=== PATIENT | female | born 1945 | race Caucasian/White ===

== ENCOUNTER 2017-08-31 18:38 | Emergency (ER) | payer MEDICARE, MEDICAID ==
[~2017-08-31] VITALS: Ht 162.6 cm; Wt 70.8 kg
[2017-08-31 18:54] VITALS: BP 134/87
[2017-08-31] MEDS ORDERED: LIDOCAINE 1% INJ 50 ML MDV IJ ONE (19:11)
[2017-08-31] MEDS ORDERED: TDAP [DIPH/PERTUSSIS/TET] 0.5 ML VIAL IM ONE ×3 (19:30→20:30)
--- NOTE | 2017-08-31 19:30 | NUR ---
PT REFUSED BOOSTRIX "I ALREADYHAD THE SHOT"
== END 2017-08-31 20:38 | disposition home or self-care (01) ==
LOC: ER 18:43
DX: S61.216A Laceration without foreign body of right little finger without damage to nail, initial encounter (principal); I10 Essential (primary) hypertension; E11.9 Type 2 diabetes mellitus without complications; E03.9 Hypothyroidism, unspecified; W45.8XXA Other foreign body or object entering through skin, initial encounter; Y93.89 Activity, other specified; Y92.89 Other specified places as the place of occurrence of the external cause; Y99.8 Other external cause status
CPT/HCPCS: 90715; A4606; A6402; J3490; Z7610

== ENCOUNTER 2017-09-02 19:24 | Emergency (ER) | payer MEDICARE, MEDICAID ==
[~2017-09-02] VITALS: Ht 157.5 cm; Wt 77.1 kg
[2017-09-02 19:30] VITALS: BP 124/73
== END 2017-09-02 19:55 | disposition home or self-care (01) ==
LOC: ER 19:25
DX: S61.216D Laceration without foreign body of right little finger without damage to nail, subsequent encounter (principal); X58.XXXD Exposure to other specified factors, subsequent encounter; I10 Essential (primary) hypertension; E11.9 Type 2 diabetes mellitus without complications
CPT/HCPCS: A4606; Z7610

== ENCOUNTER 2017-09-07 15:59 | Emergency (ER) | payer MEDICARE, MEDICAID ==
[~2017-09-07] VITALS: Ht 157.5 cm; Wt 77.1 kg
[2017-09-07 16:08] VITALS: BP 113/63
== END 2017-09-07 16:37 | disposition home or self-care (01) ==
LOC: ER 16:00
DX: S61.216D Laceration without foreign body of right little finger without damage to nail, subsequent encounter (principal); E11.9 Type 2 diabetes mellitus without complications; I10 Essential (primary) hypertension
CPT/HCPCS: 99281; A4606; Z7502; Z7610